=== PATIENT | male | born 1945 | race Caucasian/White ===

== ENCOUNTER → 2016-10-08 | Outpatient (CLI) | payer BC | END | disposition home or self-care (01) | LOC: GMAL 10:15 | PROVIDERS: ATTEND Family Medicine | DX: Z12.5 Encounter for screening for malignant neoplasm of prostate (principal) ==

== ENCOUNTER 2018-04-07 05:30 | Day surgery (SDC) | payer BC ==
[2018-04-07] MEDS ORDERED: MIDAZOLAM INJ 2 MG/2 ML VIAL ONE (06:40)
[2018-04-07] MEDS ORDERED: TROP 1%/CYCLOPEN 1%/PHENYL 2% DROPS ONE ×2 (08:41)
[2018-04-07] MEDS ORDERED: PROPARACAINE 0.5% OPHTH SOL 15 ML BTTL ONE (08:41)
[2018-04-07] MEDS: PROPARACAINE 0.5% OPHTH SOL 15 ML BTTL ONE (10:12)
[2018-04-07] MEDS: LIDOCAINE 1% MPF 5 ML VIAL INJ ONE (10:17)
[2018-04-07] MEDS: DEXAMETHASONE 0.1% OPHTH SOL 1 DROP LEFT_EYE ONE (10:22)
[2018-04-07] MEDS: GENTAMICIN 0.3% OPHTH SOL 1 DROP LEFT_EYE ONE (10:23)
[2018-04-07] MEDS: BRIMONIDINE 0.2% OPHTH DROPS LEFT_EYE ONE (10:23)
== END 2018-04-07 11:45 | disposition home or self-care (01) ==
LOC: AMB 05:30
PROVIDERS: ATTEND Ophthalmology
DX: H26.9 Unspecified cataract (principal); I10 Essential (primary) hypertension; E11.36 Type 2 diabetes mellitus with diabetic cataract; Z79.82 Long term (current) use of aspirin; Z79.899 Other long term (current) drug therapy
CPT/HCPCS: 00142; 66984; 82948; J2250

== ENCOUNTER 2018-04-21 05:34 | Day surgery (SDC) | payer BC ==
[2018-04-21] MEDS ORDERED: PROPARACAINE 0.5% OPHTH SOL 15 ML BTTL ONE (08:34)
[2018-04-21] MEDS ORDERED: TROP 1%/CYCLOPEN 1%/PHENYL 2% DROPS ONE (08:34)
[2018-04-21] MEDS ORDERED: MIDAZOLAM INJ 2 MG/2 ML VIAL ONE (09:32)
[2018-04-21] MEDS ORDERED: LIDOCAINE 1% MPF 5 ML VIAL INJ ONE (10:06)
[2018-04-21] MEDS ORDERED: DEXAMETHASONE 0.1% OPHTH SOL 1 DROP RIGHT_EYE ONE ×2 (10:11→10:48)
[2018-04-21] MEDS ORDERED: TOBRAMYCIN SULF 0.3 % OPHT SOL 1 DROP RIGHT_EYE ONE ×2 (10:11→10:48)
[2018-04-21] MEDS ORDERED: BRIMONIDINE 0.2% OPHTH DROPS RIGHT_EYE ONE ×2 (10:12→10:48)
== END 2018-04-21 11:25 | disposition home or self-care (01) ==
LOC: AMB 05:34
PROVIDERS: ATTEND Ophthalmology
DX: H26.9 Unspecified cataract (principal); I10 Essential (primary) hypertension; I25.10 Atherosclerotic heart disease of native coronary artery without angina pectoris; E11.36 Type 2 diabetes mellitus with diabetic cataract; K21.9 Gastro-esophageal reflux disease without esophagitis; Z99.2 Dependence on renal dialysis; Z79.82 Long term (current) use of aspirin; Z79.02 Long term (current) use of antithrombotics/antiplatelets; Z79.899 Other long term (current) drug therapy
CPT/HCPCS: 00142; 36416; 66984; 82948; J2250

== ENCOUNTER 2019-08-17 18:55 | Emergency (ER) | payer BC ==
[2019-08-17] MEDS ORDERED: ONDANSETRON ODT 8 MG TAB SL ONE (19:31)
[2019-08-17] MEDS ORDERED: IPRATROPIUM/ALBUTEROL 3 ML VIAL NEB ONE ×2 (19:31→19:32)
--- NOTE | 2019-08-17 20:47 | RAD ---
EXAM DESCRIPTION: Abdomen Flat Upright CLINICAL HISTORY: 73 years Male vomiting COMPARISON: None. FINDINGS: No definite free intraperitoneal air. Infiltrate suggested in the right lung base with possible right effusion. Heart is mildly enlarged. No free peritoneal air. Elevation the right hemidiaphragm. Nonspecific bowel gas pattern. IMPRESSION: No acute process in the abdomen Atelectasis or infiltrate in the right lung base with right pleural effusion Electronically signed by: Dory Muñoz MD 08/17/2019 8:45 PM FIXED WING AIRCRAFT FLIGHT MECHANIC
--- NOTE | 2019-08-17 20:48 | RAD ---
EXAM DESCRIPTION: Chest,2 Views CLINICAL HISTORY: 73 years Male cough, vomiting COMPARISON: 09/03/2015 FINDINGS: There is mild cardiac enlargement similar to the previous. There is bilateral basilar infiltrate particularly on the right involving the right middle and lower lobe with a moderate right effusion. Small amount of retrocardiac atelectasis or infiltrate in the left with small left effusion. When compared to the previous examination this appears similar. Question recurrent or persistent pneumonia. IMPRESSION: Cardiac enlargement Findings concerning for pneumonia in the right lower lobe right middle lobe and possibly in the left lung base with moderate right and small left effusions Question persistent versus recurrent pneumonia Electronically signed by: Dory Muñoz MD 08/17/2019 8:47 PM FINANCE BUSINESS PARTNER
--- NOTE | 2019-08-17 21:41 | CT ---
PROCEDURE: Chest w/o Contrast CLINICAL HISTORY: 73 years Male 2 mo cough, abn cxr COMPARISON: 09/03/2015. TECHNIQUE: Contiguous axial images obtained through the chest without IV contrast. Reformatted images obtained. This exam was performed according to our department optimization program which includes automated exposure control, adjustment of the mA and/or kv according to patient size and/or use of iterative reconstruction technique. FINDINGS: The visualized upper abdominal organs appear unremarkable. Cardiomegaly. Coronary artery calcifications/stents. Small amount of fluid in the mediastinal pericardial recesses. There are calcified mediastinal and left hilar lymph nodes. Atherosclerotic calcifications in the thoracic aorta. There is marked atherosclerotic calcification in the proximal right subclavian artery appeared similar on the prior study. Occlusion of the right subclavian artery is not excluded on this study. There is a moderate right pleural effusion and a small left pleural effusion. There is compressive atelectasis and infiltrate in the right lower lobe. There is also compressive atelectasis and mild infiltrate in the left lower lobe. These findings were all similar on the prior study. There is an area of focal thickening along the minor fissure which was similar on the prior study. There is a small amount of atelectasis or infiltrate in the lateral mid left lung which is new compared to the prior study. There is a nodular density in the lateral mid left lung also visualized measuring approximately 0.7 cm in diameter. This lesion is also new compared to the prior study. No pneumothorax. Degenerative changes in the spine. IMPRESSION: Cardiomegaly. Marked coronary artery calcifications/stents. There is marked atherosclerotic calcification in the proximal right subclavian artery. Occlusion of the right subclavian artery is not excluded on this study. Moderate right pleural effusion and small left pleural effusion with compressive atelectasis and infiltrate. The appearance of these findings was similar on the prior study. These findings could be chronic. Changes from recurrent pneumonia are not excluded. Small amount of atelectasis or infiltrate in the lateral mid left lung which is new and could be secondary to an infectious/inflammatory process. 7.0 mm solid pulmonary nodule. Recommend a non-contrast Chest CT at 6-12 months, then consider an additional non-contrast Chest CT at 18-24 months. These guidelines do not apply to immunocompromised patients and patients with cancer. Follow up in patients with significant comorbidities as clinically warranted. For lung cancer screening, adhere to Lung-RADS guidelines. Reference: Radiology. 2017; 284(1):228-43. Electronically signed by: Kris Muñoz MD 08/17/2019 9:34 PM ENTERPRISE APPLICATION ANALYST
[2019-08-17] MEDS ORDERED: cefTRIAXone SODIUM 1 GM in SODIUM CHL 0.9% 50ML MIN-BAG+ 50 ML IVPB ONE (21:48)
[2019-08-17] MEDS ORDERED: AZITHROMYCIN IV 500 MG in SODIUM CHLORIDE 0.9% 250ML 250 ML IVPB ONE (21:48)
[2019-08-17] MEDS ORDERED: AZITHROMYCIN IV 500 MG VIAL IVPB ONE (21:50)
[2019-08-17] MEDS ORDERED: cefTRIAXone SODIUM 1 GM VIAL ONE (21:50)
[2019-08-17] MEDS ORDERED: SODIUM CHLORIDE 0.9% 250ML 250 ML ONE (21:51)
[2019-08-17] MEDS ORDERED: SODIUM CHL 0.9% 50ML MIN-BAG+ 50 ML IVPB ONE (21:51)
--- NOTE | 2019-08-17 23:29 | RAD ---
EXAM DESCRIPTION: Chest,2 Views CLINICAL HISTORY: fu rt sided thoracentesis COMPARISON: 08/17/2019 FINDINGS: Frontal and lateral views of the chest. Cardiomediastinal silhouette: Stable Lungs: Persistent bibasilar opacity and right pleural effusion. No pneumothorax. Bones: Stable Upper abdomen: Stable IMPRESSION: 1. Persistent bibasilar opacity and right pleural effusion. No pneumothorax. Electronically signed by: Sky Erazo 08/17/2019 11:28 PM CLIENT ACCOUNT REPRESENTATIVE
[2019-08-17] MEDS ORDERED: cloNIDine HCL 0.1 MG TAB PO ONE (23:46)
[2019-08-17] MEDS ORDERED: FUROSEMIDE INJ 40 MG/4 ML VIAL IV ONE (23:51)
--- NOTE | 2019-08-18 00:03 | ED.PDOC ---
History of Present Illness - General Chief Complaint: Respiratory Problem Stated Complaint: cough x' 2 month, N/V today Time Seen by Provider: 08/17/19 19:30 Source: patient, family - History of Present Illness Initial Comments: The patient is a 73-year-old male presented emergency room secondary to worsening cough as well as a couple of episodes of nausea and vomiting. The patient was found to be hypoxic with oxygen saturations averaging around 83% on room air but occasionally dropping down into the mid 70s. Cough over the last couple of days has become productive. Family reports some low-grade fevers but the patient had taken Tylenol prior to arrival. No sore throat. No runny nose. The patient does have a history of CHF as well as end-stage renal disease. He is on dialysis and due for dialysis tomorrow. He does have known longstanding bilateral pleural effusions. No chest pain. No syncope. He did become dizzy with an episode of vomiting. He has not thrown up since he arrived here. The patient has had a cough for the last 2 months. It was not until last few days that it seems to have become productive. He is feeling weaker in general as well. No palpitations. Timing/Duration: unsure Severity: severe Improving Factors: nothing Worsening Factors: nothing Associated Symptoms: cough, fever/chills, loss of appetite, malaise, nausea/vomiting, shortness of breath, weakness - Generalized Allergies/Adverse Reactions: Allergies NO KNOWN ALLERGY Allergy (Verified 08/17/19 19:33) Home Medications: Ambulatory Orders Amlodipine Besylate 10 mg PO DAILY 04/07/18 Aspirin [Aspirin EC] 81 mg PO DAILY 04/07/18 Citalopram Hydrobromide [Citalopram] 20 mg PO DAILY 04/07/18 Clopidogrel Bisulfate 75 mg PO DAILY 04/07/18 Pravastatin Sodium 40 mg PO DAILY 04/07/18 Review of Systems - Review of Systems Constitutional: States: fever, malaise, weakness - Generalized EENTM: States: no symptoms reported Respiratory: States: cough, short of breath Cardiology: States: no symptoms reported Gastrointestinal/Abdominal: States: no symptoms reported Genitourinary: States: no symptoms reported Musculoskeletal: States: no symptoms reported Skin: States: no symptoms reported Neurological: States: no symptoms reported Endocrine: States: no symptoms reported All other Systems: No Change from Baseline Past Medical History (General) - Patient Medical History Hx Seizures: No Hx Stroke: No Hx Dementia: No Hx Asthma: No Hx of COPD: No Hx Cardiac Disorders: No Hx Congestive Heart Failure: No Hx Pacemaker: No Hx Hypertension: Yes Hx Thyroid Disease: No Hx Diabetes: Yes Hx Gastroesophageal Reflux: No Hx Renal Disease: No Hx Cancer: No Hx of HIV: No Hx Hepatitis C: No Hx MRSA: No Surgical History: no surgical history - Vaccination History Hx Influenza Vaccination: Yes Hx Pneumococcal Vaccination: Yes - Social History Hx Tobacco Use: Yes Family Medical History - Family History Mother Family History: Unknown Physical Exam - Physical Exam General Appearance: Alert, No apparent distress - Frequent coughing Eye Exam: bilateral normal Ears, Nose, Throat: hearing grossly normal, normal pharynx Neck: full range of motion, supple Respiratory: decreased breath sounds - Primarily at the bases, accessory muscle use - Mild, rales, rhonchi Cardiovascular/Chest: normal peripheral pulses, regular rate, rhythm, no edema Peripheral Pulses: radial,right: 2+, radial,left: 2+ Gastrointestinal/Abdominal: non tender, soft Rectal Exam: deferred Back Exam: no CVA tenderness, no vertebral tenderness Extremity: normal range of motion, non-tender, no pedal edema, normal capillary refill 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 as tested, alert, normal mood/affect, oriented x 3 Skin Exam: normal color Comments: Vital Signs - 24 hr 08/17/19 08/17/19 08/17/19 19:20 19:22 19:40 Temperature 97.9 F Pulse Rate 75 Pulse Rate [ 77 monitor] Respiratory 18 18 18 Rate Blood Pressure 175/89 [Left Arm] O2 Sat by Pulse 96 93 L Oximetry 08/17/19 08/17/19 08/17/19 20:00 20:52 21:02 Temperature Pulse Rate Pulse Rate [ 88 77 75 monitor] Respiratory 16 14 14 Rate Blood Pressure 187/82 125/93 176/101 [Left Arm] O2 Sat by Pulse 99 92 L 93 L Oximetry 08/17/19 08/17/19 22:25 23:00 Temperature Pulse Rate Pulse Rate [ 69 72 monitor] Respiratory 18 Rate Blood Pressure 174/88 172/76 [Left Arm] O2 Sat by Pulse 92 L 96 Oximetry Progress - Progress Progress: Blood, sputum and pleural fluid are being cultured. EKG showed normal sinus rhythm at 72 bpm. Right axis deviation. No definitive ST segment or T wave changes determinative of acute ischemia. Borderline prolonged QT. Borderline criteria for LVH. X-ray is consistent with bilateral pleural effusions and infiltrates. Repeat chest x-ray after thoracentesis shows a mild decrease in the size of the effusion. Infiltrates persist. No pneumothorax. CT scan of the chest shows moderate right-sided and small left-sided pleural effusions. Right lower lobe infiltrate. Focal thickening of the minor fissure on that side. There is also a small infiltrate to the left midlung. There is also a 0.7 cm lateral midlung nodule. See report for full details. Laboratory Results - last 24 hr 08/17/19 08/17/19 08/17/19 19:40 19:40 19:40 WBC 5.3 RBC 3.31 L Hgb 10.3 L Hct 31.1 L MCV 93.8 MCH 31.0 MCHC 33.0 RDW 16.0 H Plt Count 176 MPV 8.4 Absolute Neuts (auto) 3.70 Absolute Lymphs (auto) 1.00 Absolute Monos (auto) 0.50 Absolute Eos (auto) 0.10 Absolute Basos (auto) 0.10 Neutrophils % 69.0 Lymphocytes % 18.0 L Monocytes % 9.7 H Eosinophils % 1.7 Basophils % 1.6 PT 10.9 INR 1.10 PTT (SP) 28.3 Sodium 135 Potassium 3.9 Chloride 90 L Carbon Dioxide 32 H Anion Gap 16.9 BUN 18 Creatinine 6.15 H* BUN/Creatinine Ratio 2.9 L Random Glucose 130 H Serum Osmolality 273.8 L Calcium 8.9 Magnesium Total Bilirubin 1.2 H AST 16 ALT 9 L Alkaline Phosphatase 68 Creatine Kinase 46 CK-MB (CK-2) 0.9 CK-MB (CK-2) % Not Reportable Troponin I 0.06 H B-Natriuretic Peptide > 5000.0 H* Serum Total Protein 6.9 Albumin 3.5 Globulin 3.4 Albumin/Globulin Ratio 1.0 L Amylase 50 Lipase 08/17/19 19:40 WBC RBC Hgb Hct MCV MCH MCHC RDW Plt Count MPV Absolute Neuts (auto) Absolute Lymphs (auto) Absolute Monos (auto) Absolute Eos (auto) Absolute Basos (auto) Neutrophils % Lymphocytes % Monocytes % Eosinophils % Basophils % PT INR PTT (SP) Sodium Potassium Chloride Carbon Dioxide Anion Gap BUN Creatinine BUN/Creatinine Ratio Random Glucose Serum Osmolality Calcium Magnesium 2.7 H Total Bilirubin AST ALT Alkaline Phosphatase Creatine Kinase CK-MB (CK-2) CK-MB (CK-2) % Troponin I B-Natriuretic Peptide Serum Total Protein Albumin Globulin Albumin/Globulin Ratio Amylase Lipase 35 08/18/19 00:10 Assessment and plan: The patient is a 73-year-old male presented emergency room secondary to progressive respiratory difficulty and hypoxia. This appears to be a bilateral pneumonia on top of chronic worsening effusions. The patient is requiring oxygen to maintain saturations greater than 90. There is no doubt some component of congestive heart failure with this, given his history. He did receive a dose of Lasix along with a dose of Rocephin and azithromycin. He also received a DuoNeb treatment which did very little. Sputum, blood and pleural fluid are being cultured. He did also receive 1 dose of clonidine for the persistent hypertension. Approximately 350 cc of serous pleural fluid were pulled off of the base of the right lung. This did not markedly improve his oxygen saturations . the patient is due for dialysis tomorrow. This will also help with the fluid overload. Transferring for higher level of care and specialty care. Acceptance is appreciated. vidhya montano [phone] Thoracentesis note: Risks and benefits were explained to the patient and the patient did agree to proceed. The patient was set upright. Lung mobley were auscultated. Fluid level sanchez was made. Using sterile prep and drape along with 1 cc of lidocaine without epinephrine, a 2 mm incision was made through the skin. Through this the thoracentesis trocar and catheter were inserted into the posterior chest cavity on the right. Clear serous fluid was obtained. Only 350 cc of fluid were able to be drained. I suspect the chronic effusions are more loculated. Patient tolerated this well. Repeat chest x-ray shows no evidence of any pneumothorax. Estimated blood loss is none. Vaseline gauze and sponge tape were applied to the site. Fluid is being sent for culture and cytology. Departure - Departure Clinical Impression: Respiratory distress, Bilateral pleural effusion Congestive heart failure Qualifiers: Heart failure type: combined systolic and diastolic Heart failure chronicity: acute on chronic Qualified Code(s): I50.43 - Acute on chronic combined systolic (congestive) and diastolic (congestive) heart failure Pneumonia Qualifiers: Pneumonia type: due to unspecified organism Laterality: bilateral Lung location: lower lobe of lung Qualified Code(s): J18.9 - Pneumonia, unspecified organism Disposition: Transfer to Hospital Departure Forms: ED Discharge - Pt. Copy, Patient Portal Self Enrollment Referrals: Melchor Harris III, MD [Primary Care Provider] - 1-2 Weeks Home Medications: Ambulatory Orders Amlodipine Besylate 10 mg PO DAILY 04/07/18 Aspirin [Aspirin EC] 81 mg PO DAILY 04/07/18 Citalopram Hydrobromide [Citalopram] 20 mg PO DAILY 04/07/18 Clopidogrel Bisulfate 75 mg PO DAILY 04/07/18 Pravastatin Sodium 40 mg PO DAILY 04/07/18 Transfer to Outside Facility - Transfer Information Decision to Transfer Date: 08/18/19 Decision to Transfer Time: 00:15 Reason for Transfer: specialized care not available Accepting Provider:: dr concepcion Accepting Facility: [facility]
[2019-08-18 00:17] VITALS: BP 152/73; TEMP 97.5; O2SAT 95
== END 2019-08-18 00:36 | disposition short-term general hospital (02) ==
LOC: ER 18:55
DX: R06.03 Acute respiratory distress (principal); I50.43 Acute on chronic combined systolic (congestive) and diastolic (congestive) heart failure; J18.9 Pneumonia, unspecified organism; I13.2 Hypertensive heart and chronic kidney disease with heart failure and with stage 5 chronic kidney disease, or end stage renal disease; E11.22 Type 2 diabetes mellitus with diabetic chronic kidney disease; N18.6 End stage renal disease; Z79.82 Long term (current) use of aspirin; Z79.899 Other long term (current) drug therapy; Z99.2 Dependence on renal dialysis; Z87.891 Personal history of nicotine dependence
CPT/HCPCS: 71046; 71250; 74019; 80053; 82150; 82550; 82553; 83690; 83735; 83880; 84484; 85025; 85610; 85730; 87040; 87070; 87205; 87502; 93005; 94640; J0456; J0696; J1940; J7050; J7620

== ENCOUNTER 2019-10-16 13:40 | Emergency (ER) | payer BC ==
[2019-10-16] MEDS ORDERED: SODIUM CHLORIDE 0.9% (FLUSH) 10 ML SYG IV PRN (13:57)
--- NOTE | 2019-10-16 14:04 | ED.PDOC ---
History of Present Illness - General Chief Complaint: Chest Pain/UT Stated Complaint: epigastric pain x 3 days Time Seen by Provider: 10/16/19 14:02 Source: patient - History of Present Illness Initial Comments: 74 yo male with PMH of HTN, CHF, ESRD on HD, hx of pleural effusions who presents with cc of epigastric pain. Onset 3 days ago and worsening, now reports constant, severe, radiates to back, worse with eating, having poor appetite and PO intake, not worse with activity. Denies any n/v/d, chest pain, dyspnea, fevers. No medications tried for relief. Denies any alcohol usage. Allergies/Adverse Reactions: Allergies NO KNOWN ALLERGY Allergy (Verified 10/03/19 12:13) Home Medications: Ambulatory Orders Amlodipine Besylate 10 mg PO DAILY 04/07/18 Aspirin [Aspirin EC] 81 mg PO DAILY 04/07/18 Citalopram Hydrobromide [Citalopram] 20 mg PO DAILY 04/07/18 Clopidogrel Bisulfate 75 mg PO DAILY 04/07/18 Pravastatin Sodium 40 mg PO DAILY 04/07/18 Review of Systems - Review of Systems Review of Systems: 10/16/19 14:12 as per HPI All other Systems: Reviewed and Negative Past Medical History (General) - Patient Medical History Hx Seizures: No Hx Stroke: No Hx Dementia: No Hx Asthma: No Hx of COPD: No Hx Cardiac Disorders: No Hx Congestive Heart Failure: No Hx Pacemaker: No Hx Hypertension: Yes Hx Thyroid Disease: No Hx Diabetes: No Hx Gastroesophageal Reflux: No Hx Renal Disease: Yes Hx Cancer: No Hx of HIV: No Hx Hepatitis C: No Hx MRSA: No MRSA Source:: Wound - Vaccination History Hx Tetanus, Diphtheria Vaccination: Yes Hx Influenza Vaccination: Yes Hx Pneumococcal Vaccination: Yes Immunizations Up to Date: Yes - Social History Hx Tobacco Use: No Hx Chewing Tobacco Use: No Hx Alcohol Use: No Hx Substance Use: No Hx Substance Use Treatment: No Hx Depression: No Feels Threatened In Home Enviroment: No Feels Threatened In a Relationship: No Hx Physical Abuse: No Hx Emotional Abuse: No Hx Suspected Abuse: No - Female History Patient is a Female of Child Bearing Age (10 -59 yrs old): No Patient : No Family Medical History - Family History Mother Family History: Unknown Physical Exam - Physical Exam General Appearance: Alert, Comfortable, No apparent distress Eye Exam: bilateral normal Ears, Nose, Throat: normal ENT inspection, normal pharynx Neck: non-tender, full range of motion, supple, normal inspection Respiratory: chest non-tender, lungs clear, normal breath sounds, no respiratory distress, no accessory muscle use Cardiovascular/Chest: normal peripheral pulses, regular rate, rhythm, no edema, no gallop, no JVD, no murmur Peripheral Pulses: radial,right: 2+, radial,left: 2+ Gastrointestinal/Abdominal: soft, no organomegaly, no pulsatile mass, tenderness - moderate to epigastric region w/o guarding or rebound Back Exam: normal inspection, no CVA tenderness, no vertebral tenderness Extremity: normal range of motion, non-tender, normal inspection, no pedal edema, no calf tenderness 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 Remainder of labs including lipase, WBC unremarkable. Noted chronic findings of chronic renal failure and mild anemia. -EKG w/o ST elev's but did show some nonspecific changes in lateral leads -CXR with question of small R pleural effusion, otherwise no acute processes -CT A/P obtained which revealed no acute processes but did show moderate R pleural effusion and trace L pleural effusion -Pt still reporting significant pain - given trop elevation (first +trop pt has had here including recent visits when pt was in pulmonary edema/fluid overload), pain, and nonspecific EKG changes, concern for possible NSTEMI. -Discussed with Dr. Souza (cardiology) and Dr. De Jesus (hospitalist) at [facility] who accepts pt for transfer -trx here: heparin 3800 units IV followed by gtt, ASA 324 mg PO, Labetalol 10 mg IV, Fentanyl 50 mcg IV MD Kendrick Olvera #[id number] 10/16/19 13:57 Sodium Chloride 0.9% (Flush) [Saline Flush Syringe] 10 ml IV PRN PRN 10/16/19 13:58 Telemetry .ONCE EKG Stat Pulse Ox Stat Pulse Oximetry Assessment DAILY 10/16/19 14:03 UA [URINALYSIS] Stat 10/16/19 14:45 Heparin Premix [Heparin/D5w 25,000U/500ML] 25,000 units Premix Bag 1 bag IVS PRN Laboratory Results - last 24 hr 10/16/19 14:07 WBC 6.0 RBC 4.32 L Hgb 12.8 L Hct 39.1 L MCV 90.6 MCH 29.8 MCHC 32.8 L RDW 16.8 H Plt Count 181 MPV 7.9 Absolute Neuts (auto) 3.40 Absolute Lymphs (auto) 1.60 Absolute Monos (auto) 0.70 Absolute Eos (auto) 0.10 Absolute Basos (auto) 0.10 Neutrophils % 57.7 Lymphocytes % 27.6 Monocytes % 11.2 H Eosinophils % 2.2 Basophils % 1.3 PT 10.2 INR 1.03 PTT (SP) 26.9 Sodium 140 Potassium 3.7 Chloride 96 L Carbon Dioxide 30 Anion Gap 17.7 BUN 28 H Creatinine 5.50 H BUN/Creatinine Ratio 5.1 L Random Glucose 77 Serum Osmolality 283.7 Calcium 9.2 Magnesium 2.5 Total Bilirubin 1.3 H Direct Bilirubin 0.2 Indirect Bilirubin 1.1 H AST 21 ALT 11 Alkaline Phosphatase 59 Creatine Kinase 84 CK-MB (CK-2) 2.3 CK-MB (CK-2) % Not Reportable Troponin I 0.69 H* B-Natriuretic Peptide > 5000.0 H* Serum Total Protein 8.0 Albumin 4.0 Lipase 43 - EKG/XRAY/CT EKG: Sinus - NSR, HR 70, no ST elevs or q waves, nonspecific ST-T changes in lateral leads noted, LVH criteria present, axis & intervals normal, compared to 08/17/2019 EKG appears largely unchanged Departure - Departure Clinical Impression: NSTEMI (non-ST elevated myocardial infarction) Time of Disposition: 15:25 Disposition: Transfer to Hospital Condition: Fair Departure Forms: ED Discharge - Pt. Copy, Patient Portal Self Enrollment Referrals: Melchor Harris III, MD [Primary Care Provider] - 1-2 Weeks Home Medications: Ambulatory Orders Amlodipine Besylate 10 mg PO DAILY 04/07/18 Aspirin [Aspirin EC] 81 mg PO DAILY 04/07/18 Citalopram Hydrobromide [Citalopram] 20 mg PO DAILY 04/07/18 Clopidogrel Bisulfate 75 mg PO DAILY 04/07/18 Pravastatin Sodium 40 mg PO DAILY 04/07/18 Critical Care Note - Critical Care Note Total Time (mins): 45 Comments: Critical Care Time: Upon my evaluation, this patient had a high probability of life-threatening deterioration due to NSTEMI, which required my direct attention, intervention, and management. I have provided 45 minutes of critical care time exclusive of separately billable procedures. My time included: direct patient care, review of labs and radiology, obtaining history from and counseling the patient and/or the family, discussion with consultants and/or other medical personnel, documentation, and monitoring for potential decompensation. Transfer to Outside Facility - Transfer Information Decision to Transfer Date: 10/16/19 Decision to Transfer Time: 15:25 Reason for Transfer: required specialist not available - cardiology Accepting Provider:: Dr. De Jesus, Dr. Souza Accepting Facility: [facility]
[2019-10-16] MEDS ORDERED: ALUM & MAG HYDROX-SIMETHICONE 30 ML, LIDOCAINE VISCOUS 2% 15 ML PO ONE ×2 (14:15)
--- NOTE | 2019-10-16 14:39 | RAD ---
EXAM DESCRIPTION: Chest,1 View CLINICAL HISTORY: 74 years Male, chest pain COMPARISON: August 17, 2019 TECHNIQUE: AP portable chest. FINDINGS: Single view of the chest demonstrates moderate cardiomegaly and tortuous aorta with at least mild central vascular congestion. The left lung is clear with vascularity upper normal. The right lung is improved but there is residual hazy infiltrate and coarsened markings in the lung base likely with a small pleural effusion. Partial but incomplete clearing on the right suspected. Whether this represents residual edematous change or resolving infiltrate is uncertain. The mid and upper lung field on the right remains clear. IMPRESSION: 1. Stable cardiomegaly tortuous aorta and upper normal vascularity with clear left lung. 2. Partial clearing right lung base with minimal residual pleural fluid or thickening and interstitial stranding into the lung base with incomplete resolution of inflammatory changes. Electronically signed by: Bart Whiteside MD 10/16/2019 2:38 PM CDT
[2019-10-16] MEDS ORDERED: ASPIRIN (CHEWABLE) 81 MG TAB PO ONE (14:44)
[2019-10-16] MEDS ORDERED: HEPARIN SODIUM (PORCINE) 5,000 U/ML VIAL IV ONE (14:44)
[2019-10-16] MEDS ORDERED: HEPARIN PREMIX 25,000 UNITS in PREMIX BAG 1 BAG IVS SCH (14:45)
[2019-10-16] MEDS ORDERED: fentaNYL CITRATE INJ 50 MCG/ML 2 ML AMP IV ONE (14:46)
[2019-10-16] MEDS ORDERED: NITROGLYCERIN 2% 1 GM UD TOP ONE (14:46)
[2019-10-16] MEDS ORDERED: HEPARIN PREMIX 500 ML ONE (15:02)
--- NOTE | 2019-10-16 15:06 | CT ---
EXAM DESCRIPTION: Abdoment/Pelvis w/o Contrast CLINICAL HISTORY: 74 years Male, epigastric pain, dialysis pt, elevated Bilirubin COMPARISON: CT chest 08/17/2019 TECHNIQUE: CT of the abdomen and pelvis acquired without IV contrast material. Coronal and sagittal reformations provided. This exam was performed according to our departmental dose-optimization program, which includes automated exposure control, adjustment of the mA and/or kV according to patient size and/or use of iterative reconstruction technique. FINDINGS: Lung bases: Moderate right and trace left pleural effusions with adjacent passive atelectasis. Enlarged heart. Limited evaluation of the solid organs secondary to the lack of intravenous contrast. Solid Organs: There is hypertrophy of the left hepatic lobe. Unremarkable gallbladder without biliary ductal dilatation. Unremarkable noncontrast appearance of the spleen, pancreas, and adrenal glands. Bilateral renal atrophy without hydronephrosis. No renal or ureteral stone or hydroureter. GI tract: Decompressed stomach. No small bowel obstruction. Mild/moderate colonic stool. Normal appendix. Vascular: Moderate atherosclerosis. Musculoskeletal and soft tissues: No acute fracture or aggressive appearing osseous lesion. Mild body wall edema. Urinary bladder: Mildly decompressed. Prostate: Normal size. Other: None. IMPRESSION: 1. No acute abnormality of the abdomen or pelvis. 2. Moderate right and trace left pleural effusions with adjacent atelectasis. 3. Hypertrophied left hepatic lobe. 4. Bilateral renal atrophy. 5. Mild/moderate chronic stool. 6. Enlarged heart. Electronically signed by: Josiah Hussein MD 10/16/2019 3:04 PM CDT
[2019-10-16] MEDS ORDERED: ALUM & MAG HYDROX-SIMETHICONE 30 ML UD ONE (15:18)
[2019-10-16] MEDS ORDERED: LIDOCAINE HCL 2% (MOUTH-THROAT) 15 ML UD ONE (15:18)
[2019-10-16] MEDS ORDERED: LABETALOL INJ 5 MG/ML VIAL IV ONE (15:29)
[2019-10-16] MEDS ORDERED: PANTOPRAZOLE SODIUM IV 40 MG VIAL IV ONE (15:33)
[2019-10-16 16:41] VITALS: BP 182/78; TEMP 97.7; O2SAT 99
[2019-10-17] MEDS ORDERED: PANTOPRAZOLE SODIUM IV 40 MG VIAL IV SCH (06:30)
== END 2019-10-16 15:57 | disposition short-term general hospital (02) ==
LOC: ER 13:40
DX: I21.4 Non-ST elevation (NSTEMI) myocardial infarction (principal); I13.2 Hypertensive heart and chronic kidney disease with heart failure and with stage 5 chronic kidney disease, or end stage renal disease; N18.6 End stage renal disease; Z99.2 Dependence on renal dialysis; Z79.899 Other long term (current) drug therapy; Z79.82 Long term (current) use of aspirin
CPT/HCPCS: 36415; 71045; 74176; 80048; 80076; 82550; 82553; 83690; 83880; 84484; 85025; 85610; 85730; 93005; J1644; J3010

== ENCOUNTER 2019-12-13 14:32 | Emergency (ER) | payer BC ==
--- NOTE | 2019-12-13 14:49 | ED.PDOC ---
History of Present Illness - General Chief Complaint: Abdominal Pain Stated Complaint: abdominal pain Time Seen by Provider: 12/13/19 14:40 Information Source: patient, RN notes reviewed, Vital Signs reviewed Additional Information: 74yo M h/o ESRD on HD presents for upper abdominal pain. Reports sharp, non- radiating, epigstric pain exactly under xyphoid process with no radiation. Reports associated anorexia "when he has these episodes of pain" (per family), but patient denies chest pain, SOB, vomiting, constipation, diarrhea, or other complaints at this time. Denies fever, cough, or COVID contacts. Review of Systems - Review of Systems Constitutional: States: no symptoms reported EENTM: States: no symptoms reported Respiratory: States: no symptoms reported. Denies: cough, short of breath Cardiology: States: no symptoms reported. Denies: chest pain Gastrointestinal/Abdominal: States: abdominal pain. Denies: constipation, diarrhea, nausea, vomiting All other Systems: Reviewed and Negative Past Medical History (General) - Patient Medical History Hx Seizures: No Hx Stroke: No Hx Dementia: No Hx Asthma: No Hx of COPD: No Hx Cardiac Disorders: No Hx Congestive Heart Failure: No Hx Pacemaker: No Hx Hypertension: Yes Hx Thyroid Disease: No Hx Diabetes: No Hx Gastroesophageal Reflux: No Hx Renal Disease: Yes Hx Cancer: No Hx of HIV: No Hx Hepatitis C: No Hx MRSA: No MRSA Source:: Wound - Vaccination History Hx Tetanus, Diphtheria Vaccination: Yes Hx Influenza Vaccination: Yes Hx Pneumococcal Vaccination: Yes - Social History Hx Tobacco Use: No Hx Chewing Tobacco Use: No Hx Alcohol Use: No Hx Substance Use: No Hx Substance Use Treatment: No Hx Depression: No Hx Physical Abuse: No Hx Emotional Abuse: No Hx Suspected Abuse: No - Female History Patient : No Family Medical History - Family History Mother Family History: Unknown Physical Exam - Physical Exam General Appearance: Alert, Comfortable, Well Developed, Well Nourished Eyes, Ears, Nose, Throat Exam: normal ENT inspection Neck: full range of motion Respiratory: chest non-tender, lungs clear, normal breath sounds, no respiratory distress Cardiovascular/Chest: normal peripheral pulses, no edema, no murmur, irregularly irregular, other - normal rate Peripheral Pulses: No deficit Gastrointestinal/Abdominal: normal bowel sounds, soft, other - mild pain with palpation in isolated location midepigastric immediately subxyphoid with no pain an other locations immediately arounds this area Back Exam: normal inspection, no CVA tenderness Extremity: non-tender, normal inspection 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 Patient is awake and alert without noted altered mental status. No noted anginal equivalents for possible intrathoracic etiology. Does not clinically appear torsion, obstruction, or aortic pathology. Abdomen remained soft and non-peritonitic on recheck and patient reports symptoms completely r esolved. Denied any dysuria or hematuria. Discussed labs, imaging, and ED course with patient and family. They again denied any chest pain, SOB, diaphoresis, back pain, or syncope. They reported he does have a history of atrial fibrillation, and I emphasized that he needs early follow-up for this and for his dialysis. Heart rate 86 on recheck and appeared regular. Low suspicion for acutely dangerous intra-abdominal or intrathoracic pathology at this time, but recommended follow-up in 24-48hrs for recheck, or sooner in ED for new/worsening symptoms. ED warnings given, and outpatient f/u with PCP and nephrology. Patient and family voiced understanding and agreement with plan of care and desired discharge. 12/13/19 15:58 Patient and I wore masks for duration of encounter, and I maintained a distance of 6 feet except for those brief times need for physical exam. Institutional screening protocol for coronavirus performed in triage. Feliberto Ng MD #[id number] - EKG/XRAY/CT EKG: Fibrillation Comments: 1449 Afib RVR rate 117, normal axis, no STEMI Departure - Departure Clinical Impression: Abdominal pain, ESRD (end stage renal disease) Time of Disposition: 16:00 Disposition: Discharge to Home or Self Care Condition: Good Departure Forms: ED Discharge - Pt. Copy, Patient Portal Self Enrollment Instructions: DI for Abdominal Pain-Adult, End Stage Kidney Disease (DC) Diet: low fat, low cholesterol, low salt diet Activity: increase activity as tolerated Referrals: Melchor Harris III, MD [Primary Care Provider] - 1-2 Days DEBORAH OROZCO MD [Consulting Staff] - 1-5 Days [employer] Helper, Your [Other] - 1-2 Days Home Medications: Ambulatory Orders Amlodipine Besylate 10 mg PO DAILY 04/07/18 Aspirin [Aspirin EC] 81 mg PO DAILY 04/07/18 Citalopram Hydrobromide [Citalopram] 20 mg PO DAILY 04/07/18 Clopidogrel Bisulfate 75 mg PO DAILY 04/07/18 Pravastatin Sodium 40 mg PO DAILY 04/07/18 Additional Instructions: You were seen in the [facility] Emergency Department today. Please fill and take the medications as prescribed (if any) and if you were prescribed antibiotics, please complete the full course. You will need further evaluation on an out patient basis. You must follow up with the listed locations and within the time frames indicated in your discharge paperwork (including your PCP in 3-5 days). Failure to follow up with any studies or doctor visits within the timeframe mentioned could result in poor outcome. Your examination today in the ED did not reveal a new or old problem that required immediate surgery or admission to the hospital. However, you should return to the ED if you are not improving as instructed (especially within the first 6 to 24 hours). This may include things such as uncontrolled vomiting, shortness of breath, fever, bleeding, or severe pain in a body part. You should return for any new or worsening emergency symptoms such as chest pain, severe headache, confusion, or severe abdominal pain. Finally, return to the emergency department if you have any concerns not mentioned above that are concerning to you or if you are unable to follow up as instructed above. Thank you for coming to [facility]. It was our pleasure to serve you today and we thank you for your visit.
[2019-12-13] MEDS ORDERED: ONDANSETRON INJ 4 MG/2 ML VIAL IV ONE (14:54)
[2019-12-13] MEDS ORDERED: FAMOTIDINE INJ 10 MG/ML VIAL IV ONE (14:55)
[2019-12-13] MEDS ORDERED: FAMOTIDINE IV PREMIX 20 MG in PREMIX BAG 1 BAG IVPB ONE (15:02)
[2019-12-13] MEDS ORDERED: FAMOTIDINE IV PREMIX 50 ML IVPB ONE (15:02)
[2019-12-13] MEDS: SODIUM CHLORIDE 0.9% (FLUSH) 10 ML SYG IV PRN ×2 (15:08→16:04)
--- NOTE | 2019-12-13 15:34 | CT ---
EXAM DESCRIPTION: CT abdomen and pelvis without contrast: CLINICAL HISTORY: Mid epigastric pain COMPARISON: October 16, 2019 TECHNIQUE: Sequential axial images were obtained with a multi-detector helical CT without administration of intravenous iodinated contrast material. Oral contrast was not given. Automatic exposure control (AEC), mA and/or kV adjustment by patient size, and/or iterative reconstructive technique was used, per departmental dose optimization program, during the performance of the CT examination. The lack of intravenous contrast limits detailed evaluation of the abdominal organs. FINDINGS: The visualized lung bases are clear. Mild cardiomegaly and coronary arterial calcifications. The non-contrast enhanced images of the liver, spleen, pancreas and adrenals are unremarkable. Gallbladder is unremarkable The kidneys are normal in appearance. There are no renal calculi. Normal appearance of the abdominal aorta, IVC and retroperitoneum are noted. Extensive arthrosclerotic calcifications are noted in the splanchnic branches of the aorta. Ectasia of the common iliac arteries are noted bilaterally. The stomach is unremarkable. The loops of small bowel are unremarkable. The colon appears unremarkable. The appendix is normal. The bladder is unremarkable. There is no pelvic or abdominal lymphadenopathy. No ascites. No free air. The prostate and seminal vesicles appear normal. The inguinal regions are unremarkable. The visualized bony structures demonstrate significant facet joint degenerative changes.. IMPRESSION: Unremarkable non-contrast abdominal and pelvis CT. Electronically signed by: Willow Gage MD 12/13/2019 3:33 PM CDT
[2019-12-13 16:07] VITALS: BP 111/66; TEMP 97.9; O2SAT 92
== END 2019-12-13 16:16 | disposition home or self-care (01) ==
LOC: ER 14:32
DX: R10.13 Epigastric pain (principal); I12.0 Hypertensive chronic kidney disease with stage 5 chronic kidney disease or end stage renal disease; N18.6 End stage renal disease
CPT/HCPCS: 36415; 74176; 80048; 80076; 83690; 85025; 93005; J2405; J3490

== ENCOUNTER 2019-12-20 08:58 | Emergency (ER) | payer BC ==
[2019-12-20] MEDS ORDERED: ONDANSETRON INJ 4 MG/2 ML VIAL IV ONE (09:11)
[2019-12-20] MEDS ORDERED: MORPHINE SULFATE INJ 10 MG/ML VIAL IV ONE (09:11)
[2019-12-20] MEDS ORDERED: SODIUM CHLORIDE 0.9% (FLUSH) 10 ML SYG IV PRN (09:11)
[2019-12-20 09:19] VITALS: TEMP 97.8
--- NOTE | 2019-12-20 09:40 | ED.PDOC ---
History of Present Illness - General Chief Complaint: Abdominal Pain Stated Complaint: Abdominal pain and constipation Time Seen by Provider: 12/20/19 09:02 Information Source: patient, RN notes reviewed, Vital Signs reviewed Exam Limitations: language barrier Additional Information: History obtained with brother at the bedside. He is translating - History of Present Illness Initial Comments: This is a 74-year-old male with history of ESRD on dialysis, last dialysis was yesterday. He is presenting today with periumbilical abdominal pain that began last night. He says he is been constipated for the past several days, last BM was greater than 24 hours ago, states it was hard. He was seen in the emergency department 1 week ago and had a CAT scan that showed no acute process. He denies any vomiting, fever, blood in stool, changes in urine output. He denies any abdominal distention or swelling. Review of Systems - Review of Systems Constitutional: Denies: chills, fever EENTM: Denies: ear pain, nose pain, nose congestion, throat pain Respiratory: Denies: cough, orthopnea, short of breath Cardiology: Denies: chest pain, edema, syncope Gastrointestinal/Abdominal: States: abdominal pain, constipation. Denies: diarrhea, nausea, vomiting Musculoskeletal: Denies: back pain, muscle stiffness, neck pain Skin: Denies: lesions, rash Endocrine: States: no symptoms reported Hematologic/Lymphatic: States: no symptoms reported Past Medical History (General) - Patient Medical History Hx Seizures: No Hx Stroke: No Hx Dementia: No Hx Asthma: No Hx of COPD: No Hx Cardiac Disorders: No Hx Congestive Heart Failure: No Hx Pacemaker: No Hx Hypertension: Yes Hx Thyroid Disease: No Hx Diabetes: Yes Hx Gastroesophageal Reflux: No Hx Renal Disease: Yes - ERKD Hx Cancer: No Hx of HIV: No Hx Hepatitis C: No Hx MRSA: No MRSA Source:: Wound - Vaccination History Hx Tetanus, Diphtheria Vaccination: Yes Hx Influenza Vaccination: Yes Hx Pneumococcal Vaccination: Yes - Social History Hx Tobacco Use: No Hx Chewing Tobacco Use: No Hx Alcohol Use: No Hx Substance Use: No Hx Substance Use Treatment: No Hx Depression: No Hx Physical Abuse: No Hx Emotional Abuse: No Hx Suspected Abuse: No - Female History Patient is a Female of Child Bearing Age (10 -59 yrs old): No Patient : No Family Medical History - Family History Mother Family History: Unknown Physical Exam - Physical Exam General Appearance: Alert, No apparent distress, Other - Chronically ill- appearing Eyes, Ears, Nose, Throat Exam: normal ENT inspection, pharynx normal Neck: non-tender, full range of motion, supple Respiratory: lungs clear, normal breath sounds, no respiratory distress, no accessory muscle use Cardiovascular/Chest: regular rate, rhythm, no edema, no gallop, no JVD, no murmur Gastrointestinal/Abdominal: non tender, soft, no organomegaly, no pulsatile mass Back Exam: no CVA tenderness, no vertebral tenderness Extremity: normal range of motion, non-tender, normal inspection Neurologic: no motor/sensory deficits, alert, normal mood/affect, oriented x 3 Skin Exam: normal color, warm/dry Progress - Progress Progress: 12/20/19 10:10 Rechecked. Patient makes very little urine does not feel need to urinate, will cancel UA. He is feeling better. Wants to go home. Abdomen remains benign, no peritoneal signs. Vital signs are normal. Discussed plan for discharge home with lactulose liquid. Recommended follow-up with PCP/nephrology next week for recheck. Strict warnings given to return the emergency room for worsening pain, fever, blood in stool, blood in urine, or any other concerns. DDX: Constipation, SBO, ESRD, pancreatitis, low suspicion for appendicitis MDM: Third visit in the past month for abdominal pain, felt related to constipation. Patient has had no BM for 2 days, last BM was hard, denies blood in stool. Abdomen is soft, nontender, no peritoneal signs on repeat examinations. Abdominal x-ray shows no evidence of obstruction, mild to moderate stool. Labs today are reassuring. No indication for admission/discharge. Will start lactulose. EDEN BOOKER DO [facility] #[id number] - Results/Orders Results/Orders: EXAM: KUB CLINICAL INDICATION: Abdominal pain COMPARISON: There is no previous study for comparison. FINDINGS: A single view of the abdomen was obtained. There is a nonspecific bowel gas pattern with no radiographic evidence of bowel obstruction. There are no dilated loops of small bowel. There is no evidence of pneumoperitoneum or pathologic calcifications. IMPRESSION: No evidence of an acute intraabdominal process. Electronically signed by: Cruz Blancas MD 12/20/2019 9:42 AM CDT EXAM: Chest,1 View CLINICAL INDICATION: Upper abdominal pain COMPARISON: 10/16/2019 FINDINGS: A single view of the chest was obtained. The heart size is normal. The pulmonary vascularity is unremarkable. The lungs are clear. There is no consolidation, infiltrate, pleural effusion, or pneumothorax. IMPRESSION: No evidence of active pulmonary disease. Electronically signed by: Cruz Blancas MD 12/20/2019 9:42 AM CDT Laboratory Results - last 24 hr 12/20/19 12/20/19 09:20 09:20 WBC 11.9 H RBC 3.61 L Hgb 11.2 L Hct 33.6 L MCV 93.2 MCH 31.2 H MCHC 33.5 RDW 18.0 H Plt Count 199 MPV 7.5 Absolute Neuts (auto) 10.60 H Absolute Lymphs (auto) 0.50 L Absolute Monos (auto) 0.80 Absolute Eos (auto) 0.00 Absolute Basos (auto) 0.10 Neutrophils % 88.7 H Lymphocytes % 4.3 L Monocytes % 6.5 Eosinophils % 0.0 L Basophils % 0.5 Sodium 139 Potassium 4.3 Chloride 96 L Carbon Dioxide 28 Anion Gap 19.3 H BUN 61 H Creatinine 5.62 H BUN/Creatinine Ratio 10.9 Random Glucose 183 H Serum Osmolality 299.5 H Calcium 9.2 Total Bilirubin 0.7 Direct Bilirubin 0.1 Indirect Bilirubin 0.6 AST 17 ALT 11 Alkaline Phosphatase 67 Serum Total Protein 8.0 Albumin 4.1 Lipase 37 EKG reviewed personally by me at 9:52 AM. Normal sinus rhythm, rate of 63, normal axis, LVH, prolonged QTC at 507, minor ST depressions in the lateral leads likely related to LVH, no ST segment elevations. Departure - Departure Clinical Impression: Acute abdominal pain, ESRD (end stage renal disease) on dialysis Constipation Qualifiers: Constipation type: unspecified constipation type Qualified Code(s): K59.00 - Constipation, unspecified Disposition: Discharge to Home or Self Care Departure Forms: ED Discharge - Pt. Copy, Patient Portal Self Enrollment Instructions: DI for Abdominal Pain-Adult Diet: resume usual diet Referrals: Melchor Harris III, MD [Primary Care Provider] - 1-2 Weeks Prescriptions: Lactulose (Encephalopathy) [Lactulose] 10 - 20 gm PO DAILY PRN #300 ml PRN Reason: Constipation Home Medications: Ambulatory Orders Amlodipine Besylate 10 mg PO DAILY 04/07/18 Aspirin [Aspirin EC] 81 mg PO DAILY 04/07/18 Citalopram Hydrobromide [Citalopram] 20 mg PO DAILY 04/07/18 Clopidogrel Bisulfate 75 mg PO DAILY 04/07/18 Pravastatin Sodium 40 mg PO DAILY 04/07/18 Famotidine 20 mg PO DAILY #14 tab 12/13/19 Lactulose (Encephalopathy) [Lactulose] 10 - 20 gm PO DAILY PRN #300 ml 12/20/19
--- NOTE | 2019-12-20 09:44 | RAD ---
EXAM: Chest,1 View CLINICAL INDICATION: Upper abdominal pain COMPARISON: 10/16/2019 FINDINGS: A single view of the chest was obtained. The heart size is normal. The pulmonary vascularity is unremarkable. The lungs are clear. There is no consolidation, infiltrate, pleural effusion, or pneumothorax. IMPRESSION: No evidence of active pulmonary disease. Electronically signed by: Cruz Blancas MD 12/20/2019 9:42 AM CDT
--- NOTE | 2019-12-20 09:44 | RAD ---
EXAM: KUB CLINICAL INDICATION: Abdominal pain COMPARISON: There is no previous study for comparison. FINDINGS: A single view of the abdomen was obtained. There is a nonspecific bowel gas pattern with no radiographic evidence of bowel obstruction. There are no dilated loops of small bowel. There is no evidence of pneumoperitoneum or pathologic calcifications. IMPRESSION: No evidence of an acute intraabdominal process. Electronically signed by: Cruz Blancas MD 12/20/2019 9:42 AM CDT
[2019-12-20 10:02] VITALS: BP 161/76; O2SAT 96
== END 2019-12-20 10:31 | disposition home or self-care (01) ==
LOC: ER 08:58
DX: R10.33 Periumbilical pain (principal); K59.00 Constipation, unspecified; E11.22 Type 2 diabetes mellitus with diabetic chronic kidney disease; I12.0 Hypertensive chronic kidney disease with stage 5 chronic kidney disease or end stage renal disease; N18.6 End stage renal disease; Z99.2 Dependence on renal dialysis
CPT/HCPCS: 36415; 71045; 74018; 80048; 80076; 83690; 85025; 93005; A4216; J2270; J2405

== ENCOUNTER 2019-12-21 11:10 | Emergency (ER) | payer BC ==
[2019-12-21] MEDS ORDERED: NITROGLYCERIN 0.4 MG 25 EA TAB SL ONE ×3 (11:16→11:23)
[2019-12-21] MEDS ORDERED: ASPIRIN (CHEWABLE) 81 MG TAB ONE (11:16)
[2019-12-21] MEDS ORDERED: ONDANSETRON INJ 4 MG/2 ML VIAL ONE (11:21)
[2019-12-21] MEDS ORDERED: SODIUM CHLORIDE 0.9% (FLUSH) 10 ML SYG IV PRN (11:22)
[2019-12-21] MEDS ORDERED: ONDANSETRON INJ 4 MG/2 ML VIAL IV ONE (11:22)
[2019-12-21] MEDS ORDERED: ASPIRIN TABLET 325 MG TAB PO ONE (11:22)
[2019-12-21] MEDS ORDERED: TENECTEPLASE 50 MG VIAL IV ONE (11:22)
[2019-12-21 11:25] VITALS: TEMP 96
--- NOTE | 2019-12-21 11:28 | ED.PDOC ---
History of Present Illness - General Chief Complaint: Chest Pain/SC Stated Complaint: chest pain Time Seen by Provider: 12/21/19 11:21 Source: patient, EMS - History of Present Illness Initial Comments: 74 yo Armenian-speaking male with PMH of ESRD on HD (last was 2 days ago) who is bib EMS from work for cc of chest pain. 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 EMS reported EKG in route showed ST elevations in V3 through V6 as well as possibly in V1, aVR and lead III as well as ST segment depressions in lead II and aVF. No medications given in route as they were unable to verify patient allergies given the language barrier. Allergies/Adverse Reactions: Allergies NO KNOWN ALLERGY Allergy (Verified 12/20/19 09:19) Home Medications: Ambulatory Orders Amlodipine Besylate 10 mg PO DAILY 04/07/18 Aspirin [Aspirin EC] 81 mg PO DAILY 04/07/18 Citalopram Hydrobromide [Citalopram] 20 mg PO DAILY 04/07/18 Clopidogrel Bisulfate 75 mg PO DAILY 04/07/18 Pravastatin Sodium 40 mg PO DAILY 04/07/18 Famotidine 20 mg PO DAILY #14 tab 12/13/19 Lactulose (Encephalopathy) [Lactulose] 10 - 20 gm PO DAILY PRN #300 ml 12/20/19 Review of Systems - Review of Systems Review of Systems: 12/21/19 11:28 as per HPI All other Systems: Reviewed and Negative Past Medical History (General) - Patient Medical History Hx Seizures: No Hx Stroke: No Hx Dementia: No Hx Asthma: No Hx of COPD: No Hx Cardiac Disorders: No Hx Congestive Heart Failure: No Hx Pacemaker: No Hx Hypertension: Yes Hx Thyroid Disease: No Hx Diabetes: Yes Hx Gastroesophageal Reflux: No Hx Renal Disease: Yes - ERKD Hx Cancer: No Hx of HIV: No Hx Hepatitis C: No Hx MRSA: No MRSA Source:: Wound - Vaccination History Hx Tetanus, Diphtheria Vaccination: Yes Hx Influenza Vaccination: Yes Hx Pneumococcal Vaccination: Yes - Social History Hx Tobacco Use: No Hx Chewing Tobacco Use: No Hx Alcohol Use: No Hx Substance Use: No Hx Substance Use Treatment: No Hx Depression: No Hx Physical Abuse: No Hx Emotional Abuse: No Hx Suspected Abuse: No - Female History Patient : No Family Medical History - Family History Mother Family History: Unknown Physical Exam - Physical Exam General Appearance: Alert, Anxious Eyes, Ears, Nose, Throat Exam: PERRL/EOMI, normal ENT inspection, pharynx normal Neck: non-tender, full range of motion, supple, normal inspection Respiratory: chest non-tender, lungs clear, normal breath sounds, no respiratory distress, no accessory muscle use Cardiovascular/Chest: normal peripheral pulses, regular rate, rhythm, no edema, no gallop, no JVD, no murmur Peripheral Pulses: radial,right: 2+, radial,left: 2+ Gastrointestinal/Abdominal: non tender, soft, no organomegaly Extremity: normal range of motion, non-tender, normal inspection, no pedal edema, no calf tenderness, normal capillary refill 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 ST elevations resolved upon ED arrival. -Discussed with Dr. Al, ED physician at [facility] ED, and joint decision made to administer tenecteplase IV here in our ED in addition to aspirin and nitroglycerin and will transfer the patient via helicopter. Helicopter activated by EMS staff and in route to the ED upon patient arrival here. -Obtain blood work and monitor the patient closely for potential decompensation. 12/21/19 12:02 -Pt with little improvement in pain following SL NTG x3 and beginning NTG gtt. Given morphine 4 mg IV. Sign out given to helicopter paramedics. Initial labs reveal trop 0.35, d dimer 1120, BNP 1950, WBC 12,500 with 65% segs and no bands, H/H 11.5/35, PLTs 251,000, coag studies wnl, BUN 72, Cr 7.9 - cw ESRD, K 3.9 -meds given: ASA 324 mg PO, NTG SL x3 & NTG gtt, TNKase 30 mg IV per protocol, morphine 4 mg IV, Zofran 4 mg IV, Heparin 3300 unit IV bolus followed by heparin gtt at 12 units/kg/hr. -transfer emergently via helicopter to [facility] ED in serious but stable condition Neil Webster MD Billing #[id number] 12/21/19 11:22 IV Care:Saline Lock per Protoc QSHIFT Telemetry .ONCE Sodium Chloride 0.9% (Flush) [Saline Flush Syringe] 10 ml IV PRN PRN EKG Stat Pulse Ox Stat 12/21/19 12:00 Heparin Drip for TNKASE Heparin Premix [Heparin/D5w 25,000U/500ML] 25,000 units Premix Bag 1 bag IVS PRN Laboratory Results - last 24 hr 12/21/19 12/21/19 11:00 11:00 WBC 12.5 H RBC 3.66 L Hgb 11.5 L Hct 35.3 L MCV 96.3 H MCH 31.5 H MCHC 32.7 L RDW 18.2 H Plt Count 251 MPV 8.3 Absolute Neuts (auto) 8.10 H Absolute Lymphs (auto) 3.50 H Absolute Monos (auto) 0.60 Absolute Eos (auto) 0.20 Absolute Basos (auto) 0.20 H Neutrophils % 65.0 Lymphocytes % 27.7 Monocytes % 4.6 Eosinophils % 1.4 Basophils % 1.3 PT 9.8 INR < 1.00 PTT (SP) 23.4 D-Dimer, Quantitative 1120 H* Sodium 138 Potassium 3.9 Chloride 93 L Carbon Dioxide 20 L Anion Gap 28.9 H BUN 72 H Creatinine 7.97 H* D BUN/Creatinine Ratio 9.0 L Random Glucose 222 H Serum Osmolality 303.7 H Calcium 9.0 Magnesium 3.2 H Total Bilirubin 0.8 Direct Bilirubin 0.1 Indirect Bilirubin 0.7 AST 23 ALT 10 Alkaline Phosphatase 57 Creatine Kinase 69 CK-MB (CK-2) 3.6 CK-MB (CK-2) % Not Reportable Troponin I 0.35 H* B-Natriuretic Peptide 1950.0 H* Serum Total Protein 8.2 Albumin 4.2 - EKG/XRAY/CT EKG: Atrial, Fibrillation - HR 50, ST elevations noted in V1, V3-V4, AVR, III with ST segment depressions in I and AVF, possible q waves noted AVR and lateral leads, left axis deviation, intervals otherwise normal, compared to 12/13/[address] elevations are new (this is my read of the field EKG performed by EMS) XRAY: chest - Per my read, cardiomegaly present without evidence of acute processes - Additional EKG/XRAY/Consults EKG #2: Atrial, Fibrillation - with occasional PVC's, HR 85, ST elevations resolved, q waves seem resolved, axis and intervals normal, ST elevations and reciprocal changes seem resolved compared to EKG performed by 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 Copy, Patient Portal Self Enrollment Referrals: Melchor Harris III, MD [Primary Care Provider] - 1-2 Weeks Home Medications: Ambulatory Orders Amlodipine Besylate 10 mg PO DAILY 04/07/18 Aspirin [Aspirin EC] 81 mg PO DAILY 04/07/18 Citalopram Hydrobromide [Citalopram] 20 mg PO DAILY 04/07/18 Clopidogrel Bisulfate 75 mg PO DAILY 04/07/18 Pravastatin Sodium 40 mg PO DAILY 04/07/18 Famotidine 20 mg PO DAILY #14 tab 12/13/19 Lactulose (Encephalopathy) [Lactulose] 10 - 20 gm PO DAILY PRN #300 ml 12/20/19 Critical Care Note - Critical Care Note Total Time (mins): 45 Comments: Critical Care Time: Upon my evaluation, this patient had a high probability of life-threatening deterioration due to STEMI, which required my direct attention, intervention, and management. I have provided 45 minutes of critical care time exclusive of separately billable procedures. My time included: direct patient care, review of labs and radiology, obtaining history from and counseling the patient and/or the family, discussion with consultants and/or other medical personnel, documentation, and monitoring for potential decompensation. 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 Al Accepting Facility: [facility]
[2019-12-21] MEDS ORDERED: NITROGLYCERIN/D5W IV 250 ML IVS ONE (11:40)
--- NOTE | 2019-12-21 11:41 | RAD ---
EXAM DESCRIPTION: Chest,1 View CLINICAL HISTORY: chest pain COMPARISON: 20 December 2019 TECHNIQUE: AP portable chest FINDINGS: Cardiomegaly is evident. The lungs are clear. No pleural fluid is seen. IMPRESSION: Cardiomegaly is observed without evidence of congestive heart failure. Electronically signed by: Melchor Chang MD 12/21/2019 11:40 AM CDT
[2019-12-21 11:43] VITALS: O2SAT 98
[2019-12-21] MEDS ORDERED: MORPHINE SULFATE INJ 10 MG/ML VIAL ONE (11:47)
[2019-12-21] MEDS ORDERED: HEPARIN SODIUM (PORCINE) 5,000 U/ML VIAL IV ONE (11:58)
[2019-12-21] MEDS ORDERED: HEPARIN PREMIX 25,000 UNITS in PREMIX BAG 1 BAG IVS SCH (12:00)
[2019-12-21 13:02] VITALS: BP 106/44
== END 2019-12-21 12:15 | disposition short-term general hospital (02) ==
LOC: ER 11:10
DX: I21.3 ST elevation (STEMI) myocardial infarction of unspecified site (principal); I12.0 Hypertensive chronic kidney disease with stage 5 chronic kidney disease or end stage renal disease; N18.6 End stage renal disease; I48.91 Unspecified atrial fibrillation; E11.22 Type 2 diabetes mellitus with diabetic chronic kidney disease
CPT/HCPCS: 36415; 71045; 80048; 80076; 82150; 82550; 82553; 83690; 83880; 84484; 85025; 85379; 85610; 85730; 93005; J1644; J2270; J2405; J3101